=== PATIENT | male | born 1980 | race Caucasian/White ===

== ENCOUNTER 2018-06-10 11:35 | Emergency (ER) | payer OTHER ==
[2018-06-10] MEDS: LORAZEPAM 2 MG INJ IM (12:25)
[2018-06-10] MEDS: DIPHTH/TET/ACEL PERTUSS (ADULT) 0.5 ML VIAL IM* (13:29)
== END 2018-06-10 13:54 ==
LOC: E/R 11:35
DX: S81.812A Laceration without foreign body, left lower leg, initial encounter (principal); F15.90 Other stimulant use, unspecified, uncomplicated; F17.210 Nicotine dependence, cigarettes, uncomplicated; W22.8XXA Striking against or struck by other objects, initial encounter; Y92.009 Unspecified place in unspecified non-institutional (private) residence as the place of occurrence of the external cause; Z23 Encounter for immunization
CPT/HCPCS: 12002; 73590; 90471; 90715; 96372; 99284-25

== ENCOUNTER 2018-06-10 14:39 | Emergency (ER) | payer OTHER | END 2018-06-10 16:03 | LOC: E/R 14:39 | DX: Z48.01 Encounter for change or removal of surgical wound dressing (principal) | CPT/HCPCS: 99283 ==